=== PATIENT | male | born 1990 | race Caucasian/White ===

== ENCOUNTER 2020-08-05 23:16 | Emergency (ER) | payer BC ==
[2020-08-06 02:22] LABS: HEMOGLOBIN 15.6 gm/dl (14.0-17.5); RED BLOOD COUNT 5.12 M/UL (4.20-5.50)
[2020-08-06 02:44] LABS: BUN/CREATININE RATIO 10 (0-10)
== END 2020-08-06 05:51 | disposition home or self-care (01) ==
LOC: ER1 23:16
PROVIDERS: Urology
DX: R07.89 Other chest pain (principal); Z90.89 Acquired absence of other organs
CPT/HCPCS: 71045; 80053; 82550; 82553; 83735; 83874; 83880; 84484; 85025; 85379; 93005; 99285

== ENCOUNTER 2020-09-11 22:24 | Emergency (ER) | payer BC ==
[2020-09-11 23:32] LABS: HEMOGLOBIN 16.2 gm/dl (14.0-17.5); RED BLOOD COUNT 5.36 M/UL (4.20-5.50); WHITE BLOOD COUNT 12.2 K/UL (4.5-11.0)
[2020-09-11 23:56] LABS: BUN/CREATININE RATIO 15 (0-10)
== END 2020-09-12 10:35 ==
LOC: ER1 22:24
PROVIDERS: Family Medicine; Internal Medicine
DX: T43.022A Poisoning by tetracyclic antidepressants, intentional self-harm, initial encounter (principal); F10.129 Alcohol abuse with intoxication, unspecified; Z90.89 Acquired absence of other organs; R45.81 Low self-esteem; Z20.822 Contact with and (suspected) exposure to COVID-19
CPT/HCPCS: 80053; 80307; 82550; 82553; 85025; 99285; G0480; J2060; U0002